=== PATIENT | female | born 1980 | race African-American/Black ===

== ENCOUNTER 2020-10-06 23:44 | Emergency (ER) | payer MEDICAID ==
[~2020-10-06] VITALS: Ht 170.2 cm; Wt 91.0 kg
[2020-10-07 02:45] VITALS: BP 122/96
== END 2020-10-07 02:49 ==
LOC: ER 23:44
DX: S93.402A Sprain of unspecified ligament of left ankle, initial encounter (principal); S00.33XA Contusion of nose, initial encounter; G40.909 Epilepsy, unspecified, not intractable, without status epilepticus; Z91.14 Patient's other noncompliance with medication regimen; Y04.0XXA Assault by unarmed brawl or fight, initial encounter; Y07.03 Male partner, perpetrator of maltreatment and neglect; Y93.89 Activity, other specified; Y92.89 Other specified places as the place of occurrence of the external cause
CPT/HCPCS: 70160; 73600; 81025; 93005; 99284

== ENCOUNTER 2024-05-27 21:42 | Emergency (ER) | payer MEDICAID, OTHER ==
[~2024-05-27] VITALS: Ht 170.2 cm; Wt 91.0 kg
[2024-05-27 21:43] VITALS: O2SAT 98
[2024-05-27] MEDS: LEVETIRACETAM 1000MG PREMIX 100 ML IV ONE (23:21)
[2024-05-27] MEDS: ACETAMINOPHEN 325MG TABLET PO ONE (23:21)
[2024-05-27 23:33] LABS: BASOPHILS % 0.6 % (0.0-2.0); DIFFERENTIAL COMMENT 0; EOSINOPHILS % 1.6 % (0.0-5.0); HEMATOCRIT. 31.1 % (36.0-48.0); HEMOGLOBIN. 10.1 g/dL (12.0-16.0); LYMPHOCYTES % 41.4 % (20.0-50.0); MEAN CORPUSCULAR HEMOGLOBIN 25.4 pg (28.0-32.0); MEAN CORPUSCULAR HGB CONC 32.5 g/dL (31.0-37.0); MEAN CORPUSCULAR VOLUME 78.2 fL (81.0-99.0); MEAN PLATELET VOLUME 9.3 fl (7.4-10.4); MONOCYTES % 10.4 % (2.0-8.0); PLATELET 209 x1000/uL (130-400); RED BLOOD CELL COUNT 3.98 mill/uL (4.2-5.4); RED CELL DISTRIBUTION WIDTH 17.9 % (11.6-14.6); WHITE BLOOD COUNT 4.8 x1000/uL (4.5-11.0)
[2024-05-28 00:11] LABS: CARBON DIOXIDE 25 mEq/L (21-32); CHLORIDE 109 mEq/L (98-107); POTASSIUM 3.7 mEq/L (3.5-5.1); SODIUM 141 mEq/L (136-145)
[2024-05-28 00:12] LABS: CALCIUM 8.5 mg/dL (8.7-10.4)
[2024-05-28 00:17] LABS: CREATININE 0.7 mg/dL (0.6-1.0); GLUCOSE 130 mg/dL (70-105); UREA NITROGEN BLOOD 15 mg/dL (9-23)
[2024-05-28 00:44] LABS: TROPONIN I HIGH SENSITIVITY < 4 ng/L (3.0-34)
[2024-05-28] MEDS ORDERED: LEVE1000 MT (01:45)
[2024-05-28 02:00] VITALS: BP 127/70; PULSE 78; RESP 20; TEMP 37; O2SAT 99
== END 2024-05-28 02:28 | disposition home or self-care (01) ==
LOC: ER 21:42
DX: R56.9 Unspecified convulsions (principal); F17.200 Nicotine dependence, unspecified, uncomplicated; F10.90 Alcohol use, unspecified, uncomplicated; Y90.9 Presence of alcohol in blood, level not specified
CPT/HCPCS: 99285; 96365; 71045; 80048; 85025; 84484; 36415; 93005; J1953